=== PATIENT | male | born 1975 | race Caucasian/White ===

== ENCOUNTER 2017-02-18 14:37 | Observation (INO) | payer SELFPAY ==
[~2017-02-18] VITALS: Ht 195.6 cm; Wt 147.7 kg
[~2017-02-18 14:37] MED LIST: BENTYL20 MG PO; CLONIDINE0.1 MG PO; ENALAPRIL10 MG PO; METAXALONE PO; METAXALONE800 M1 PO; METFORMIN1000 MG PO; ULTRAM50 M1 PO; VASOTEC10 MG PO; Vasotec PO
[2017-02-18 15:12] LABS: HEMATOCRIT 41.2 % (39.0-50.0); HEMOGLOBIN 13.6 g/dl (14.0-18.0); IMMATURE GRANULOCYTES 0.4 % (0.0-1.0); MEAN CELL VOLUME 87.8 fL CALC (80.0-100.0); NEUT# 3.15 thou/uL (1.82-7.42); RED BLOOD COUNT 4.69 mill/uL (4.70-6.10); RED CELL DISTRI WIDTH 13.4 % (11.5-15.5)
[2017-02-18 15:39] LABS: ANION GAP 16 (6-22 (CALC)); BUN 13 mg/dL (9-20); BUN/CREATININE RATIO 13 (12-20 (CALC)); CALCIUM 8.9 mg/dL (8.4-10.2); CARBON DIOXIDE 25 mmol/l (22-30); CHLORIDE 104 mmol/l (95-108); GFR > 60 ML/MIN (>=60 (CALC)); GFR FOR AFR.AMER. > 60 ML/MIN (>=60 (CALC)); GLUCOSE 121 mg/dL (75-110); SODIUM 142 mmol/l (137-146)
[2017-02-18 20:57] VITALS: BP 152/91
[2017-02-19 00:05] VITALS: BP 133/90
[2017-02-19 04:41] VITALS: BP 138/91
[2017-02-19 06:01] LABS: ALBUMIN 3.6 g/dL (3.2-5.0); ALKALINE PHOSPHATASE 68 u/l (38-126); ANION GAP 13 (6-22 (CALC)); BILIRUBIN, TOTAL 0.7 mg/dL (0.0-1.4); BUN 11 mg/dL (9-20); BUN/CREATININE RATIO 14 (12-20 (CALC)); CALCIUM 8.6 mg/dL (8.4-10.2); CALCULATED LDLCHOLESTEROL 89 mg/dL (62-129 (CALC)); CARBON DIOXIDE 25 mmol/l (22-30); CHLORIDE 110 mmol/l (95-108); CHOLESTEROL HDL RATIO 5.5 (<4.4 (CALC)); CREATININE 0.8 mg/dL (0.7-1.3); GFR > 60 ML/MIN (>=60 (CALC)); GFR FOR AFR.AMER. > 60 ML/MIN (>=60 (CALC)); GLUCOSE 129 mg/dL (75-110); HDL CHOLESTEROL 25 mg/dL (>=40); SGOT/AST 34 u/l (17-59); SGPT/ALT 39 u/l (21-72); SODIUM 144 mmol/l (137-146); TOTAL CHOLESTEROL 138 mg/dl (0-199); TOTAL PROTEIN 6.6 g/dL (6.3-8.2); TOTAL TRIGLYCERIDES 121 mg/dl (30-149); VLDL CHOLESTROL 24 mg/dl (5-56 (CALC))
[2017-02-19 08:29] VITALS: BP 138/89
[2017-02-19 12:30] VITALS: BP 130/80
[2017-02-19] MEDS ORDERED: ASPIRIN81 MG PO (13:16)
== END 2017-02-19 13:50 | disposition home or self-care (01) | DRG 313 ==
LOC: ED 14:37 → ED-I 16:36 → ED 16:49 → MS2 16:50
PROVIDERS: Family Medicine; ADMIT Internal Medicine Geriatric Medicine; ATTEND Internal Medicine Geriatric Medicine
DX: R07.9 Chest pain, unspecified (principal); K27.9 Peptic ulcer, site unspecified, unspecified as acute or chronic, without hemorrhage or perforation; I10 Essential (primary) hypertension; K21.9 Gastro-esophageal reflux disease without esophagitis; R79.89 Other specified abnormal findings of blood chemistry
CPT/HCPCS: G0378

== ENCOUNTER 2017-12-14 20:30 | Emergency (ER) | payer BC ==
[~2017-12-14] VITALS: Ht 195.6 cm; Wt 151.6 kg
[~2017-12-14 20:30] MED LIST changes: +ASPIRIN81 MG PO
[2017-12-14] MEDS ORDERED: ENALAPRIL20 MG PO (20:37)
[2017-12-14] MEDS ORDERED: METFORMIN500 MG PO (20:37)
[2017-12-14] MEDS ORDERED: MULTIVITAMI1 PO (20:38)
[2017-12-14] MEDS ORDERED: ASPIRIN CHEWABL81 MG PO (20:38)
[2017-12-14 21:17] LABS: HEMATOCRIT 41.2 % (39.0-50.0); HEMOGLOBIN 14.1 g/dl (14.0-18.0); IMMATURE GRANULOCYTES 0.3 % (0.0-5.0); MEAN CELL VOLUME 85.7 fL CALC (80.0-100.0); MEAN CORPUSCULAR HGB 29.3 pG CALC (26.0-32.0); MEAN CORPUSCULAR HGB CONC 34.2 g/L CALC (32.0-36.0); NEUT# 5.62 thou/uL (1.82-7.42); RED BLOOD COUNT 4.81 mill/uL (4.70-6.10)
[2017-12-14 21:23] LABS: POTASSIUM 4.5 mmol/l (3.5-5.1)
[2017-12-14 21:25] LABS: ALBUMIN 5.1 g/dL (3.2-5.0); CREATININE 2.7 mg/dL (0.7-1.3); TOTAL PROTEIN 8.5 g/dL (6.3-8.2)
[2017-12-14 23:00] VITALS: BP 113/56
== END 2017-12-14 23:42 | disposition home or self-care (01) | DRG 93 ==
LOC: ED 20:30
PROVIDERS: Family Medicine
DX: R25.2 Cramp and spasm (principal); E86.0 Dehydration; R11.2 Nausea with vomiting, unspecified; R10.9 Unspecified abdominal pain; X30.XXXA Exposure to excessive natural heat, initial encounter; Y93.89 Activity, other specified; Y92.007 Garden or yard of unspecified non-institutional (private) residence as the place of occurrence of the external cause

== ENCOUNTER 2018-10-12 06:59 | Emergency (ER) | payer BC ==
[~2018-10-12] VITALS: Ht 195.6 cm; Wt 150.0 kg
[~2018-10-12 06:59] MED LIST changes: +ASPIRIN CHEWABL81 MG PO; +ENALAPRIL20 MG PO; +METFORMIN500 MG PO; +MULTIVITAMI1 PO
[2018-10-12] MEDS ORDERED: AMLODIPINE5 MG PO (07:07)
[2018-10-12 07:50] LABS: HEMATOCRIT 40.9 % (39.0-50.0); HEMOGLOBIN 13.5 g/dl (14.0-18.0); IMMATURE GRANULOCYTES 0.3 % (0.0-5.0); MEAN CELL VOLUME 86.7 fL CALC (80.0-100.0); MEAN CORPUSCULAR HGB 28.6 pG CALC (26.0-32.0); NEUT# 3.22 thou/uL (1.82-7.42); RED BLOOD COUNT 4.72 mill/uL (4.70-6.10); RED CELL DISTRI WIDTH 13.2 % (11.5-15.5)
[2018-10-12 08:04] LABS: ALBUMIN 4.5 g/dL (3.2-5.0); ALKALINE PHOSPHATASE 77 u/l (38-126); ANION GAP 16 (6-22 (CALC)); BILIRUBIN, TOTAL 0.8 mg/dL (0.0-1.4); BUN 24 mg/dL (9-20); BUN/CREATININE RATIO 16 (12-20 (CALC)); CARBON DIOXIDE 24 mmol/l (22-30); CHLORIDE 105 mmol/l (95-108); GFR 51 ML/MIN (>=60 (CALC)); LIPASE 197 u/l (23-300); POTASSIUM 4.6 mmol/l (3.5-5.1); SGOT/AST 27 u/l (17-59); SODIUM 140 mmol/l (137-146); TOTAL PROTEIN 7.6 g/dL (6.3-8.2)
[2018-10-12 08:05] LABS: CREATININE 1.5 mg/dL (0.7-1.3); GFR FOR AFR.AMER. > 60 ML/MIN (>=60 (CALC))
[2018-10-12 08:05] LABS: URINE BILIRUBIN - DIPSTICK NEGATIVE (NEGATIVE); URINE BLOOD DIPSTICK MODERATE (NEGATIVE); URINE COLOR YELLOW; URINE GLUCOSE - DIPSTICK NEGATIVE (NEGATIVE); URINE KETONE NEGATIVE (NEGATIVE); URINE LEUK ESTERASE NEGATIVE (NEGATIVE); URINE NITRITE - DIPSTICK NEGATIVE (Negative); URINE PH 5.5 (4.5-8.0); URINE PROTEIN - DIPSTICK NEGATIVE (NEG-TRACE); URINE UROBILINOGEN - DIPSTICK 0.2 E.U./dL (0.2)
[2018-10-12 08:19] LABS: URINE SQUAMOUS EPITHELIAL CELL FEW EPI/hpf (0-FEW)
[2018-10-12] MEDS ORDERED: MOTRIN400 MG PO (08:44)
[2018-10-12] MEDS ORDERED: CEPHALEXIN500 M1 PO (08:44)
[2018-10-12] MEDS ORDERED: TAMSULOSIN0.4 MG PO (08:44)
[2018-10-12 08:53] VITALS: BP 173/112
== END 2018-10-12 09:04 | disposition home or self-care (01) | DRG 694 ==
LOC: ED 06:59
PROVIDERS: Family Medicine
DX: N13.2 Hydronephrosis with renal and ureteral calculous obstruction (principal); R10.31 Right lower quadrant pain

== ENCOUNTER 2020-03-23 08:31 | Emergency (ER) | payer BC ==
[~2020-03-23] VITALS: Ht 195.6 cm; Wt 154.0 kg
[~2020-03-23 08:31] MED LIST changes: +ACULAR0.5 % OU; +AMLODIPINE5 MG PO; +AMOXICILLIN875 MG OR; +CEPHALEXIN500 M1 PO; +MOTRIN400 MG PO; +TAMSULOSIN0.4 MG PO
[2020-03-23] MEDS ORDERED: JANUVIA50 MG PO (09:01)
[2020-03-23 09:14] LABS: HEMATOCRIT 42.8 % (39.0-50.0); HEMOGLOBIN 14.1 g/dl (14.0-18.0); IMMATURE GRANULOCYTES 0.3 % (0.0-5.0); MEAN CELL VOLUME 86.5 fL CALC (80.0-100.0); MEAN CORPUSCULAR HGB 28.5 pG CALC (26.0-32.0); MEAN CORPUSCULAR HGB CONC 32.9 g/dL CAL (32.0-36.0); NEUT# 6.49 thou/uL (1.82-7.42); RED BLOOD COUNT 4.95 mill/uL (4.70-6.10); RED CELL DISTRI WIDTH 12.9 % (11.5-15.5)
[2020-03-23 09:31] LABS: ALBUMIN 4.4 g/dL (3.2-5.0); POTASSIUM 4.4 mmol/l (3.5-5.1)
[2020-03-23 09:34] LABS: BILIRUBIN, TOTAL 1.2 mg/dL (0.0-1.4); CREATININE 2.6 mg/dL (0.7-1.3)
[2020-03-23 10:12] LABS: URINE BILIRUBIN - DIPSTICK NEGATIVE (NEGATIVE); URINE BLOOD DIPSTICK NEGATIVE (NEGATIVE); URINE GLUCOSE - DIPSTICK NEGATIVE (NEGATIVE); URINE KETONE 15 mg/dL (NEGATIVE); URINE LEUK ESTERASE NEGATIVE (NEGATIVE); URINE PROTEIN - DIPSTICK 30 mg/dL (NEG-TRACE); URINE UROBILINOGEN - DIPSTICK 0.2 E.U./dL (0.2)
[2020-03-23 10:16] LABS: URINE COLOR DK. YELLOW; URINE NITRITE - DIPSTICK POSITIVE (Negative)
[2020-03-23 10:17] LABS: URINE EPITHELIAL CELLS FEW EPI/hpf (0-FEW); URINE WBC 0-2 WBC/hpf (0-5)
[2020-03-23 10:20] LABS: URINE BACTERIA FEW hpf; URINE MUCUS FEW hpf (NONE-FEW)
[2020-03-23] MEDS ORDERED: TAMSULOSIN0.4 MG PO ×2 (10:41→11:23)
[2020-03-23] MEDS ORDERED: OMNI-PAC300 MG PO ×2 (10:41→11:23)
[2020-03-23] MEDS ORDERED: MOTRIN400 MG/TAB PO ×2 (10:41→11:23)
[2020-03-23] MEDS ORDERED: HYDROCO/APAP1 TA9 PO ×2 (10:41→11:23)
[2020-03-23 10:49] VITALS: BP 146/87
== END 2020-03-23 11:01 | disposition home or self-care (01) | DRG 694 ==
LOC: ED 08:31
PROVIDERS: Family Medicine
DX: N13.2 Hydronephrosis with renal and ureteral calculous obstruction (principal); E11.9 Type 2 diabetes mellitus without complications; I10 Essential (primary) hypertension; Z87.442 Personal history of urinary calculi

== ENCOUNTER 2021-06-09 00:10 | Emergency (ER) | payer BC ==
[~2021-06-09] VITALS: Ht 195.6 cm; Wt 154.0 kg
[~2021-06-09 00:10] MED LIST changes: +HYDROCO/APAP1 TA9 PO; +JANUVIA50 MG PO; +MOTRIN400 MG/TAB PO; +OMNI-PAC300 MG PO
[2021-06-09 01:46] LABS: HEMOGLOBIN 13.3 g/dl (14.0-18.0); IMMATURE GRANULOCYTES 0.4 % (0.0-5.0); MEAN CELL VOLUME 87.5 fL CALC (80.0-100.0); MEAN CORPUSCULAR HGB 29.1 pG CALC (26.0-32.0); MEAN CORPUSCULAR HGB CONC 33.3 g/dL CAL (32.0-36.0); NEUT# 7.68 thou/uL (1.82-7.42); RED BLOOD COUNT 4.57 mill/uL (4.70-6.10); RED CELL DISTRI WIDTH 13.5 % (11.5-15.5)
[2021-06-09 01:47] LABS: URINE BILIRUBIN - DIPSTICK NEGATIVE (NEGATIVE); URINE BLOOD DIPSTICK LARGE (NEGATIVE); URINE COLOR YELLOW; URINE GLUCOSE - DIPSTICK 500 mg/dL (NEGATIVE); URINE KETONE NEGATIVE (NEGATIVE); URINE PROTEIN - DIPSTICK 30 mg/dL (NEG-TRACE); URINE SPECIFIC GRAVITY 1.025; URINE UROBILINOGEN - DIPSTICK 0.2 E.U./dL (0.2)
[2021-06-09 01:48] LABS: URINE NITRITE - DIPSTICK NEGATIVE (Negative)
[2021-06-09 01:49] LABS: URINE LEUK ESTERASE NEGATIVE (NEGATIVE)
[2021-06-09 01:57] LABS: URINE EPITHELIAL CELLS FEW EPI/hpf (0-FEW); URINE RBC >100 RBC/hpf (0-5)
[2021-06-09 01:59] LABS: URINE BACTERIA MODERATE hpf
[2021-06-09 02:10] LABS: ALBUMIN 3.8 g/dL (3.2-5.0); SGOT/AST 26 u/l (17-59)
[2021-06-09 02:14] LABS: ACT PARTIAL THROMBO TIME 23.1 SECONDS (20.0-32.5); INTERNATIONAL NORMALIZED RATIO 0.9 RATIO (0.7-1.3); PROTHROMBIN TIME 9.9 SECONDS (9.0-12.5)
[2021-06-09 02:21] LABS: ANION GAP 13 (6-22 (CALC)); BUN 18 mg/dL (9-20); CARBON DIOXIDE 24 mmol/l (22-30); CHLORIDE 104 mmol/l (95-108); POTASSIUM 4.4 mmol/l (3.5-5.1); SODIUM 136 mmol/l (137-146); TOTAL PROTEIN 7.1 g/dL (6.3-8.2)
[2021-06-09 02:26] LABS: ALKALINE PHOSPHATASE 117 u/l (38-126); BILIRUBIN, TOTAL 0.5 mg/dL (0.0-1.4); BUN/CREATININE RATIO 15 (12-20 (CALC)); CREATININE 1.2 mg/dL (0.7-1.3); GFR > 60 ML/MIN (>=60 (CALC)); GFR FOR AFR.AMER. > 60 ML/MIN (>=60 (CALC))
[2021-06-09 03:49] VITALS: BP 132/69
[2021-06-09] MEDS ORDERED: CIPROFLOXACN500 MG PO (03:50)
== END 2021-06-09 04:30 | disposition home or self-care (01) | DRG 700 ==
LOC: ED 00:10
PROC: 0T9B70Z Drainage of Bladder with Drainage Device, Via Natural or Artificial Opening (ICD-10-PCS; principal; 2021-06-09)
DX: S37.30XA Unspecified injury of urethra, initial encounter (principal); E11.9 Type 2 diabetes mellitus without complications; I10 Essential (primary) hypertension; X58.XXXA Exposure to other specified factors, initial encounter; Y93.89 Activity, other specified
CPT/HCPCS: Q9967